=== PATIENT | female | born 1990 | race Hispanic/Latino ===

== ENCOUNTER 2018-11-17 10:37 | Outpatient (CLI) | payer OTHER ==
--- NOTE | 2018-11-17 11:55 | ULT ---
Sonogram abdomen complete HISTORY: Upper abdomen pain. FINDINGS: Gallbladder is surgically absent. Common duct is 0.5 cm. Liver is diffusely echogenic witho ut focal abnormality. No free fluid. The spleen, kidneys, and visualized portions of abdominal aorta, IVC, and pancreas are are unremarkab le. Spleen is 10.4 cm length. IMPRESSION: Status post cholecystectomy. No acute abnormalities are demonstrated. Hepatic steatosis.
== END 2018-11-17 10:38 | disposition home or self-care (01) ==
LOC: BICULT 10:37
PROVIDERS: ATTEND Family Medicine
DX: R10.9 Unspecified abdominal pain (principal); K76.0 Fatty (change of) liver, not elsewhere classified; Z90.49 Acquired absence of other specified parts of digestive tract
CPT/HCPCS: 76700